=== PATIENT | male | born 2005 | race Two or more races ===

== ENCOUNTER 2023-06-30 01:11 | Emergency (ER) | payer SELFPAY ==
[~2023-06-30] VITALS: Ht 180.3 cm; Wt 75.0 kg
[2023-06-30] MEDS ORDERED: ONDANSETRON ODT 4 MG TAB PO ONE (04:45)
[2023-06-30] MEDS ORDERED: LIDOCAINE 1% HCL (LOCAL ANESTH.) INJ 20ML MDV ID ONE (04:45)
[2023-06-30] MEDS ORDERED: TETANUS-DIPTH-ACEL PERTUSSIS 0.5ML SYR Tdap IM ONE (04:45)
[2023-06-30] MEDS ORDERED: CEPH500T PO (05:27)
[2023-06-30] MEDS ORDERED: NEOM-48 EX (05:28)
[2023-06-30] MEDS ORDERED: IBUP1TAB5 PO (05:28)
[2023-06-30] MEDS ORDERED: IBUPROFEN 600 MG TAB PO ONE (05:30)
[2023-06-30] MEDS ORDERED: NEOMYCIN-BACITRACIN-POLYM UNITDOSE PKG TOP OINT TOP ONE (05:30)
[2023-06-30 05:50] VITALS: BP 112/76; PULSE 88; RESP 19; TEMP 98.1; O2SAT 98
== END 2023-06-30 06:00 | disposition home or self-care (01) ==
LOC: ER 01:11
DX: S61.412A Laceration without foreign body of left hand, initial encounter (principal); S61.431A Puncture wound without foreign body of right hand, initial encounter; W26.9XXA Contact with unspecified sharp object(s), initial encounter; Y93.89 Activity, other specified; Y92.89 Other specified places as the place of occurrence of the external cause; Y99.8 Other external cause status
CPT/HCPCS: 73130; 90471; 90715; 99283; J2001; Q0162